=== PATIENT | female | born 1940 | race Two or more races ===

== ENCOUNTER 2022-01-18 17:25 | Emergency (ER) | payer OTHER ==
[~2022-01-18] VITALS: Ht 152.4 cm; Wt 90.7 kg
--- NOTE | 2022-01-18 17:34 | NUR ---
Patient is Aox4, can not recall the exact names and dosages of her home medications
--- NOTE | 2022-01-18 17:50 | NUR ---
@bedside with Lynne conference interpreter
[2022-01-18 18:47] LABS: CARBON DIOXIDE 23 mmol/L (21-32); CHLORIDE 102 mmol/L (98-107); CREATININE 1.3 mg/dL (0.6-1.3); POTASSIUM 3.7 mmol/L (3.5-5.1); UREA NITROGEN, BLOOD 20 mg/dL (7-18)
[2022-01-18 18:49] LABS: BILIRUBIN,DIRECT 0.1 mg/dL (0.0-0.2); BILIRUBIN,TOTAL 0.4 mg/dL (0.2-1.0); TOTAL PROTEIN, SERUM 6.9 g/dL (6.4-8.2)
[2022-01-18 19:04] LABS: GLUCOSE 405 mg/dL (74-106)
--- NOTE | 2022-01-18 19:05 | NUR ---
Received report of critical lab results, [id number] and [id number]. notified.
[2022-01-18] MEDS ORDERED: HYDROCODONE/APAP 5-325MG TABLET ONE (19:19)
[2022-01-18] MEDS: HYDROCODONE/APAP 5-325MG TABLET PO ONE ×2 (19:20→19:21)
--- NOTE | 2022-01-18 19:24 | NUR ---
Endorsed to Ang JOHNSON.
[2022-01-18 19:45] LABS: HEMATOCRIT 39.5 % (31.2-41.9); MEAN CORPUSCULAR HEMOGLOBIN 29.1 uug (24.7-32.8); MEAN CORPUSCULAR VOLUME 88.8 fL (75.5-95.3); PLATELET COUNT (AUTO) 198 K/uL (179-408)
[2022-01-18] MEDS ORDERED: HEPARIN/D5W DRIP 500 ML IV PRN (20:15)
[2022-01-18] MEDS ORDERED: HEPARIN SODIUM,PORCINE 5,000 UNITS/ML VIAL IV ONE (20:15)
[2022-01-18 20:31] LABS: *BILIRUBIN,URIN NEGATIVE (NEGATIVE); *BLOOD, URINE NEGATIVE (NEGATIVE); *CLARITY,URINE CLEAR (CLEAR); *COLOR,URINE YELLOW (YELLOW); *KETONES,URINE NEGATIVE (NEGATIVE); LEUKOCYTE ESTERASE ,URINE TRACE (NEGATIVE); NITRITE, URINE NEGATIVE (NEGATIVE); UGLUCOSE 3+ (NEGATIVE)
[2022-01-18 22:27] LABS: BACTERIA,URINE NONE SEEN /HPF (NONE SEEN); RBC,URINE 0-3 /HPF (0-3); SQUAMOUS EPITHELIAL CELL,UR NONE SEEN /HPF (NONE SEEN); WBC,URINE 0-3 /HPF (0-3)
[2022-01-18] MEDS ORDERED: ACETAMINOPHEN ES 500 MG TABLET PO ONE (22:30)
[2022-01-18] MEDS ORDERED: ACETAMINOPHEN ES 500 MG TABLET ONE (23:15)
--- NOTE | 2022-01-19 01:25 | NUR ---
Received call back from Mark manager of case management for [facility], pending authorization for higher level of care transfer.
--- NOTE | 2022-01-19 07:06 | NUR ---
International Logistics Coordinator assumes care: Patient is for transfer to [facility] ER for higher level of care 2/2 needing elective cardiac catheterization per Dr Blandon. Authorization #[id number] for ALS ambulance ride was given. Patient is asleep, easily arousable, respiration:easy, skin warm and dry, denies chest pains@the moment.
[2022-01-19] MEDS ORDERED: HEPARIN SODIUM,PORCINE 5,000 UNITS/ML VIAL ONE (07:23)
--- NOTE | 2022-01-19 10:01 | NUR ---
Ambulance companies : [facility], [facility], [facility], [facility],and [facility] were called and said that they do not have ALS ambulance available today. We will try more ambulance companies. Nursing properties supervisor Erlinda notified.
--- NOTE | 2022-01-19 10:42 | NUR ---
[facility] tugboat dispatcher Sammi gave ALS ambulance UOR=[id number]. Patient will transfer to outside Facility: [facility] ER Physician: Dr Dakota Partida accepted the patient Location: [place] for higher level of care RN: Noa of [facility] MICROPALEONTOLOGIST: Nettie of [facility] Gig Tender accepted nursing SBAR.
--- NOTE | 2022-01-19 11:16 | NUR ---
[facility] nursing music supervisor Renata wanted copies of Facesheet and ER summary report faxed at : done. Per Renata, the [facility] nursing music supervisor, DEEJAY Cast accepted this patient as well.
--- NOTE | 2022-01-19 11:53 | NUR ---
SBAR given to ALS ambulance unit#[id number] (EMT Dawit & RN Phuong of [facility]).
--- NOTE | 2022-01-19 12:06 | NUR ---
Patient left ER in stable condition.
== END 2022-01-19 12:06 | disposition short-term general hospital (02) ==
LOC: ER 17:54
DX: I21.4 Non-ST elevation (NSTEMI) myocardial infarction (principal); I25.2 Old myocardial infarction; Z95.5 Presence of coronary angioplasty implant and graft; Z79.02 Long term (current) use of antithrombotics/antiplatelets; E03.9 Hypothyroidism, unspecified; Z88.0 Allergy status to penicillin; Z20.822 Contact with and (suspected) exposure to COVID-19; I25.119 Atherosclerotic heart disease of native coronary artery with unspecified angina pectoris; R77.8 Other specified abnormalities of plasma proteins; E11.9 Type 2 diabetes mellitus without complications; I11.9 Hypertensive heart disease without heart failure
CPT/HCPCS: 71045; 87426; 80076; 80048; 81001; 83880; 85025; 85379; 85610; 85730; 87400; 84484 ×3; 36415 ×2; 93005 ×3; 99285; 96374; 82962; J1644; A9150